=== PATIENT | male | born 1955 | race Caucasian/White ===

== ENCOUNTER 2021-04-13 08:13 | Outpatient (CLI) | payer MEDICARE | END 2021-04-13 23:59 | disposition home or self-care (01) | LOC: RAD 08:13 | PROVIDERS: ATTEND Psychiatry & Neurology Neurology | DX: G40.89 Other seizures (principal) | CPT/HCPCS: 95819 ==

== ENCOUNTER 2021-05-13 12:54 | Outpatient (CLI) | payer MEDICARE | END 2021-05-13 23:59 | disposition home or self-care (01) | LOC: RAD 12:54 | PROVIDERS: ATTEND Nurse Practitioner Family | DX: R13.14 Dysphagia, pharyngoesophageal phase (principal); K21.9 Gastro-esophageal reflux disease without esophagitis | CPT/HCPCS: 74230 ==

== ENCOUNTER → 2024-11-02 | Outpatient (CLI) | payer MEDICARE ==
--- NOTE | 2024-11-02 09:22 | RADIOLOGY REPORT ---
Exam: CT CT ABDOMEN History: INFCT FOL A PROC, SUPERFIC INCISIONAL SURGICAL SITE, SUBS Comparison Study: None Technique: Multidetector spiral CT of the abdomen was performed from lung bases to iliac crest. Imagi ng was performed without IV contrast. Axial, coronal and sagittal multiplanar reformats were obtained from the axial data set by the technologist. Radiation Dose : CT Dose: CTDI volume is 18.8 mGy. Dose-length product is 727.7 mGy*cm Findings: Evaluation of solid organs is limited due to lack of intravenous contrast use. Lung Bases: No acute or significant lung base finding. Normal heart size. No pleural or pericardial effusion. Liver: The liver is normal in size. No focal lesions. Gallbladder and Biliary Tree: Cholecystostomy tube in satisfactory position. Spleen: Unremarkable Pancreas: The pancreas is grossly normal in appearance. Adrenal Glands: Unremarkable Kidneys: Kidneys are grossly normal without calculi or hydronephrosis. Visualized Bowel: The stomach is grossly normal in appearance. Diverticulosis. Mild inflammatory nix ges associated with the distal descending and proximal sigmoid colon. Ascites: Absent Lymphadenopathy: No mesenteric, retroperitoneal or periportal lymphadenopathy. Abdominal Wall and Mesentery: Unremarkable. Vasculature: Vascular calcifications of the aorta. Musculoskeletal: No aggressive focal bony lesions, acute fractures or dislocation. IMPRESSION: Cholecystostomy drain in satisfactory position. Diverticulosis and mild inflammatory changes associated with the distal descending colon and sigmoid colon possibly representing mild colitis or mild diverticulitis. No abscess or perforation. Radiation optimization: All CT scans at this facility use at least one of these dose optimization reggie hniques: automated exposure control mA and/or kV adjustment per patient size (includes targeted exam s where dose is matched to clinical indication) or iterative reconstruction.
== END | disposition home or self-care (01) ==
LOC: RAD 08:17
PROVIDERS: ATTEND Surgery
DX: T81.41XD Infection following a procedure, superficial incisional surgical site, subsequent encounter (principal); K57.30 Diverticulosis of large intestine without perforation or abscess without bleeding; Z90.49 Acquired absence of other specified parts of digestive tract; T81.40XA Infection following a procedure, unspecified, initial encounter; T80.29XA Infection following other infusion, transfusion and therapeutic injection, initial encounter; X58.XXXD Exposure to other specified factors, subsequent encounter
CPT/HCPCS: 74150